=== PATIENT | female | born 1980 | race Two or more races ===

== ENCOUNTER 2024-02-10 15:04 | Emergency (ER) | payer OTHER ==
[~2024-02-10] VITALS: Ht 167.6 cm; Wt 76.2 kg
[2024-02-10 15:33] VITALS: BP 134/80; O2SAT 99
[2024-02-10] MEDS ORDERED: DILTIAZEM HCL120 MG (15:33)
[2024-02-10] MEDS ORDERED: KETOROLAC TROMETHAMINE 60 MG VIAL IM ONE (15:45)
[2024-02-10 16:24] LABS: HEMATOCRIT 37.8 % (36.0-45.00); MEAN CELL VOLUME 91.4 fL (80.00-100.00); MEAN CORPUSCULAR HEMOGLOBIN 31.4 pg (27.00-32.0); MEAN CORPUSCULAR HGB CONC 34.4 g/dl (32.0-36.0); PLATELET COUNT 245 K/uL (150-450); RED BLOOD COUNT 4.14 M/uL (4.00-6.00); RED CELL DISTRIBUTION WIDTH 13.2 % (11.5-14.5)
== END 2024-02-10 16:54 | disposition home or self-care (01) ==
LOC: ER 15:06
PROVIDERS: General Practice
DX: B97.7 Papillomavirus as the cause of diseases classified elsewhere (principal)